=== PATIENT | male | born 1945 | race Two or more races ===

== ENCOUNTER 2020-09-04 07:23 | Day surgery (SDC) | payer OTHER, MEDICAID ==
[~2020-09-04] VITALS: Ht 182.9 cm; Wt 97.7 kg
[~2020-09-04 07:23] MED LIST: AMLO-489 PO; ASPI-318 PO; ATO40T PO; BACL10TA PO; CARV6.25 PO; CHOL20007 PO; CLON0.3D4 PO; DOXY-286 PO; LISI40TA11 PO; MELO1TAB56 PO; METF-370 PO; MONT10TA34 PO; MONT5CHW23 PO; NALO1TAB4 PO; OMEP20TA PO; ONDA-144 PO; POM; SERT-376 PO
[2020-09-04] MEDS ORDERED: IODIXANOL 320MG/ML 100ML BTL IV ONE (09:39)
[2020-09-04] MEDS ORDERED: LIDOCAINE 2%HCL (LOCAL ANESTH.) INJ 20ML MDV ONE (09:39)
[2020-09-04] MEDS ORDERED: ANGIOMAX 250 MG VIAL IV ONE (09:50)
[2020-09-04] MEDS ORDERED: fentaNYL CITRATE 100 MCG/2 ML VL ONE (09:51)
[2020-09-04] MEDS ORDERED: VERAPAMIL 2.5MG/ML INJ 2ML VIAL IV ONE (09:51)
[2020-09-04] MEDS ORDERED: MIDAZOLAM HCL 1MG/1ML-2 ML VIAL ONE (09:51)
[2020-09-04] MEDS ORDERED: HEPARIN SODIUM (PORCINE) 5000 UNITS/ML 1ML VIAL ONE (09:51)
[2020-09-04] MEDS ORDERED: SODIUM CHL 0.9% 0 ML ONE (09:51)
[2020-09-04] MEDS ORDERED: HYDROcodone-ACET 5/325MG TAB PO PRN (11:30)
[2020-09-04] MEDS ORDERED: ONDANSETRON HCL 4 MG/2 ML VIAL IV PRN (11:30)
[2020-09-04] MEDS ORDERED: ACETAMINOPHEN 500 MG TAB PO PRN (11:30)
== END 2020-09-04 14:26 | disposition home or self-care (01) ==
LOC: CATH 07:23
PROVIDERS: ATTEND Specialist
DX: I25.10 Atherosclerotic heart disease of native coronary artery without angina pectoris (principal); I10 Essential (primary) hypertension; E78.5 Hyperlipidemia, unspecified; I73.9 Peripheral vascular disease, unspecified; E11.9 Type 2 diabetes mellitus without complications; Z96.89 Presence of other specified functional implants; Z20.822 Contact with and (suspected) exposure to COVID-19; Z79.899 Other long term (current) drug therapy; Z98.890 Other specified postprocedural states; Z87.891 Personal history of nicotine dependence; Z79.82 Long term (current) use of aspirin; Z79.84 Long term (current) use of oral hypoglycemic drugs; Z68.29 Body mass index [BMI] 29.0-29.9, adult
CPT/HCPCS: 93454; C1769; C1887; C1894; J1644; J2250; J3010; J7030; Q9967; U0003; 99152; 99153

== ENCOUNTER → 2025-02-14 | Day surgery (SDC) | payer OTHER, MEDICAID ==
[~2025-02-14] VITALS: Ht 180.3 cm; Wt 93.0 kg
[~2025-02-14] MED LIST changes: -AMLO-489 PO; +APIX5TAB PO; +ASCO100076 PO; -ASPI-318 PO; -ATO40T PO; +ATOR-507 PO; -BACL10TA PO; -CARV6.25 PO; +CARV6.2517 PO; -CHOL20007 PO; -CLON0.3D4 PO; -DOXY-286 PO; +EMPA1TAB PO; +HYDR-4072 PO; -LISI40TA11 PO; +MELO15TA29 PO; -MELO1TAB56 PO; -METF-370 PO; +MONT-8 PO; -MONT10TA34 PO; -MONT5CHW23 PO; -OMEP20TA PO; -ONDA-144 PO; -POM; +SACU1TAB PO
[2025-02-14] MEDS: LIDOCAINE VISCOUS 2% 15ML UD PO ONE (08:10)
[2025-02-14] MEDS: fentaNYL CITRATE 100 MCG/2 ML VL IV ONE (08:10)
[2025-02-14] MEDS: MIDAZOLAM HCL 2MG/2ML 2ml VIAL (1mg/ml) IV ONE (08:10)
[2025-02-14 09:29] VITALS: BP 124/91; PULSE 66; RESP 16; TEMP 97.5; O2SAT 100
[2025-02-14 09:44] VITALS: BP 114/84; PULSE 65; RESP 14; O2SAT 100
[2025-02-14 10:00] VITALS: BP 117/87; PULSE 71; RESP 16; O2SAT 100
--- NOTE | 2025-02-14 10:09 | DVHOP2 ---
Operative Report Trans-Esophageal Echocardiogram PROCEDURE REPORT Date of Service: 02/14/2025 Dye Winch Operator: Salvador Adams MD PROCEDURE PERFORMED: Transesophageal echocardiogram, conscious sedation administration and supervision, more than 15 minutes. Intra cardiac bubble study. PREOPERATIVE DIAGNOSES: r/o intracardiac (LV) thrombus. DESCRIPTION OF PROCEDURE: The patient signed informed consent understanding risks, benefits and alternatives of the procedure, he wished to proceed. The p atient was given 15 mL of oral viscous lidocaine. he was placed in a left lateral decubitus position and conscious sedation was administered per [employer] protocol (1 mg of Versed and 50 mcg of Fentanyl). I administered a bite block into his mouth and a LEX probe into the mid esophagus without any difficulties or complications. Multiple planar images were obtained. Bubble study was also performed. At the completion of procedure, LEX probe was removed and there were no immediate complications. Vitals signs were stable throughout the procedure. FINDINGS: 1. Left ventricle: Borderline concentrated Left ventricular hypertrophy was seen. LVEF was 25%. Diffuse hypokinesis of left ventricle is seen. There was no LV thrombus. 2. Right ventricle: RV was mildly dilated. Pacing wire was seen in it. 3. Left atrium: LA was mildly enlarged 4. Right atrium: RA was enlarged with pacing wire. 5. Mitral valve: Trace Mitral regurgitation, no significant stenosis, normal functioning valve. There was no vegetation 6. Left atrial appendage: No evidence of thrombus. 7. Aortic valve: Trileaflet valve. No stenosis. No Aortic Insufficiency was seen. There was no vegetation 8. Pulmonic valve: Trivial pulmonic insufficiency. No significant stenosis. 9. Tricuspid valve: Mild tricuspid regurgitation. There was no vegetation 10. Interatrial septum: Negative color flow for right to left shunt was observed. Bubble study revealed minimal cross of bubbles into left atrium, que stioning presence of small PFO which was not visualized. 11. Pericardium: No significant effusion. 12. Thoracic aorta: No significant plaquing. No LV thrombus. LVEF of 25%. Bubble study revealed minimal cross of bubbles into left atrium, questioning presence of small PFO which was not visualized SALVADOR ADAMS MD Feb 14, 2025 10:09
== END | disposition home or self-care (01) ==
LOC: CATH 06:52
PROVIDERS: ATTEND Internal Medicine Cardiovascular Disease
DX: I49.5 Sick sinus syndrome (principal); I07.1 Rheumatic tricuspid insufficiency; I37.1 Nonrheumatic pulmonary valve insufficiency; I82.90 Acute embolism and thrombosis of unspecified vein; I10 Essential (primary) hypertension; E78.5 Hyperlipidemia, unspecified; Z87.891 Personal history of nicotine dependence; Z79.899 Other long term (current) drug therapy
CPT/HCPCS: 93312; 93325; J2250; J3010; 99152

== ENCOUNTER 2025-03-31 06:02 | Day surgery (SDC) | payer OTHER, MEDICAID ==
[~2025-03-31] VITALS: Ht 180.3 cm; Wt 88.0 kg
[~2025-03-31 06:02] MED LIST changes: -ASCO100076 PO
[2025-03-31] MEDS: IODIXANOL 320MG/ML 100ML BTL IV ONE (07:42)
[2025-03-31] MEDS: LIDOCAINE 2%HCL (LOCAL ANESTH.) INJ 20ML MDV ONE (08:01)
[2025-03-31] MEDS: VERAPAMIL 2.5MG/ML INJ 2ML VIAL IV ONE (08:01)
[2025-03-31] MEDS: ANGIOMAX 250 MG VIAL IV ONE (08:01)
[2025-03-31] MEDS: fentaNYL CITRATE 100 MCG/2 ML VL ONE (08:01)
[2025-03-31] MEDS: MIDAZOLAM HCL 2MG/2ML 2ml VIAL (1mg/ml) ONE (08:01)
[2025-03-31] MEDS: HEPARIN SODIUM (PORCINE) 5000 UNITS/ML 1ML VIAL ONE (08:01)
[2025-03-31] MEDS: SODIUM CHL 0.9% 0 ML ONE (08:01)
[2025-03-31 08:57] VITALS: BP 117/79; PULSE 60; RESP 14
--- NOTE | 2025-03-31 09:03 | DVHOP2 ---
Operative Report Procedures performed: Left heart catheterization and bilateral coronary angiogram Moderate sedation Diagnosis: Nonobstructive coronary artery disease Known systolic heart failure Nonischemic cardiomyopathy LVEDP: 12 mm Hg Cardiac suggestion for management: Optimized medical therapy Guideline directed medical therapy for systolic heart failure Consider ICD/BiV-ICD Lifestyle and risk factor modifications Findings: LVEDP: 12 mm Hg There was no transaortic valve pressure gradient Left main: Left main was coming off the left sinus of Valsalva. Proximal left main had 30% disease. Ramus intermedius: Ramus intermedius was a small-caliber vessel with no angiographic evidence of disease which came off the left main. LAD: LAD came off the left main. It had significant slow flow. It provided a large bifurcating 1st diagonal. Second and 3rd diagonals were small-caliber vessel. LAD throughout its course had nonobstructive mild disease. LCX: LCX was a large caliber vessel which came off the left main. OM1 was a medium-sized vessel. LCX itself continued as a large OM2. LCX had slow flow. Mild diffuse disease in LCX was seen. RCA: RCA was coming off the right sinus of Valsalva. It was a dominant vessel and provided RPDA/RPLS. RCA throughout its course and branches had mild diffuse disease. RCA also had slow flow. Presentation: Patient is a 80-year-old gentleman with history of hypertension, CKD, hyperlipidemia and history of pacemaker implantation for sick sinus syndrome. Who was found to have systolic heart failure/worsening of LV systolic function. There was a point that there was concern about LV thrombus. LEX was performed on February 2025 which ruled out thrombus. Patient was sent for cardiac catheterization/ischemic workup. Procedure: After obtaining informed consent, the patient was brought to the cardiac catheterization unit. He was prepped and draped in sterile fashion. Right radial artery was used for access site. 1 mg of Versed and 50 mcg of fentanyl were used for moderate sedation. Using Seldinger technique, the right radial artery was accessed and a 6 [place] slender sheath was inserted into it. 2.5 mg of verapamil and 100 mcg of nitroglycerin were given as a cocktail into right radial sheath. 4500 units of heparin was given peripherally. A 6 [place] JL4 diagnostic catheter was used to perform left coronary angiography. A 6 [place] JR4 diagnostic catheter was used to perform right coronary angiography. The same 6 [place] JR4 diagnostic catheter was used to perform left heart catheterization obtain (obtaining pressures). We did recognize the significant slow flow throughout the coronary system, especially in the left anterior descending artery. There was no indication for any transcatheter revascularization. Total bleeding was less than 5 mL. There was no dissection/hematoma/perforation. Patient tolerated procedure with no complication. Right radial artery access was managed by deploying a TR band. Fluoroscopy time: 5.9 minutes contrast: 45 mL of EleonoraipaSALVADOR Hook MD Mar 31, 2025 09:03
[2025-03-31 09:13] VITALS: BP 112/82; PULSE 71; RESP 14
[2025-03-31 09:34] VITALS: BP 121/86; PULSE 69; RESP 16
[2025-03-31 09:55] VITALS: BP 122/82; PULSE 73; RESP 14
[2025-03-31 10:08] VITALS: BP 129/94; PULSE 76; RESP 18; O2SAT 97
[2025-03-31 11:00] VITALS: BP 121/88; PULSE 85; RESP 18; O2SAT 98
== END 2025-03-31 11:00 | disposition home or self-care (01) ==
LOC: CATH 06:02
PROVIDERS: ATTEND Internal Medicine Cardiovascular Disease
DX: I42.8 Other cardiomyopathies (principal); I25.10 Atherosclerotic heart disease of native coronary artery without angina pectoris; I13.0 Hypertensive heart and chronic kidney disease with heart failure and stage 1 through stage 4 chronic kidney disease, or unspecified chronic kidney disease; E11.22 Type 2 diabetes mellitus with diabetic chronic kidney disease; I50.20 Unspecified systolic (congestive) heart failure; N18.9 Chronic kidney disease, unspecified; E78.5 Hyperlipidemia, unspecified; Z95.0 Presence of cardiac pacemaker; Z79.899 Other long term (current) drug therapy; Z87.891 Personal history of nicotine dependence
CPT/HCPCS: 93458; C1769; C1894; J1644; J2250; J3010; J7030; Q9967; 99152